=== PATIENT | female | born 1950 | race Caucasian/White ===

== ENCOUNTER 2017-03-29 08:58 | Emergency (ER) | payer BC ==
[2017-03-29] MEDS ORDERED: NS 0.9% 1000 ML* 1,000 ML IV ONE (11:02)
[2017-03-29] MEDS ORDERED: Ondansetron INJ* 2 MG/ML VIAL IV ONE (11:12)
[2017-03-29 11:28] LABS: ABS Basophils 0.1 10^3/ul (0-0.2); ABS Eosinophils 0 10^3/ul (0-0.6); ABS Lymphocytes 1.4 10^3/ul (1.0-4.8); ABS Monocytes 0.5 10^3/ul (0-0.8); ABS Neutrophils 8.3 10^3/ul (1.5-7.7); ABS Nucleated RBC 0 10^3/ul; Eosinophil % 0.4 % (0-6); Hematocrit 41 % (35-47); Hemoglobin 14.1 g/dl (12.0-16.0); Lymphocyte % 13.1 % (25-47); Mean Corpuscular HGB Conc 34 g/dl (31-36); Mean Corpuscular Hemoglobin 33 pg (27-31); Mean Corpuscular Volume 96 fL (80-97); Mean Platelet Volume 9 um3 (7.4-10.4); Nucleated Red Blood Cells % 0; Platelet Count 233 10^3/ul (150-450); Red Blood Count 4.27 10^6/ul (4.0-5.4); Red Cell Distribution Width 14 % (10.5-15); White Blood Count 10.3 10^3/ul (3.5-10.8)
[2017-03-29 11:33] VITALS: BP 138/87
[2017-03-29 11:37] LABS: INR 1.01 (0.77-1.02)
[2017-03-29 11:45] LABS: EGFR Non-African American 51.1 (>60)
--- NOTE | 2017-03-29 12:45 | ED ---
Aminata Garcia Julia, scribed for Ronaldo Anthony on 03/29/17 at 1057 . Influenza-Like Illness - HPI Summary HPI Summary: This patient is a 66 year old F presenting to [facility] with a chief complaint of influenza like symptoms for the past three days. Patient report body aches, fever, N/V/D, and epigastric abdominal pain. Patient denies SOB. Patient is concerned for dehydration. - History of Current Complaint Chief Complaint: EDFluSymptoms Time Seen by Provider: 03/29/17 10:39 Hx Obtained From: Patient Onset/Duration: Lasting Days Associated Signs & Symptoms: Fever, Myalgia, Vomiting, Diarrhea - Allergy/Home Medications Allergies/Adverse Reactions: Allergies Allergy/AdvReac Type Severity Reaction Status Date / Time amoxicillin [From Augmentin] Allergy Diarrhea Verified 03/29/17 09:09 clavulanic acid Allergy Diarrhea Verified 03/29/17 09:09 [From Augmentin] doxazosin [From Cardura] Allergy Difficulty Verified 03/29/17 09:10 Breathing losartan [From Cozaar] Allergy Dizziness Verified 03/29/17 09:11 metoprolol [From Lopressor] Allergy Fatigue Verified 03/29/17 09:11 pantoprazole [From Protonix] Allergy Swelling Verified 03/29/17 09:12 Of Face,Lips,& Throat verapamil [From Calan] Allergy Difficulty Verified 03/29/17 09:12 Breathing PMH/Surg Hx/FS Hx/Imm Hx Endocrine/Hematology History: Reports: Hx Thyroid Disease - BEING MONITORED AT THIS POINT-?ALIREZA'S Cardiovascular History: Reports: Hx Hypertension - ON MEDICATION FOR pt. states controlled Denies: Hx Pacemaker/ICD, Other Cardiovascular Problems/Disorders Respiratory History: Reports: Hx Asthma - RELATED TO SEASONAL ALLERGIES Denies: Other Respiratory Problems/Disorders GI History: Reports: Hx Gastroesophageal Reflux Disease - ON MEDS History: Reports: Hx Kidney Stones, Other Problems/Disorders - MANY YEARS AGO- BLEEDING-PERMANENT SCREW PLACED IN KIDNEY-15+YRS AGO Musculoskeletal History: Reports: Hx Arthritis - HIPS, KNEES, HANDS Denies: Hx Osteoporosis Sensory History: Reports: Hx Contacts or Glasses - READING Denies: Hx Hearing Aid Opthamlomology History: Reports: Hx Contacts or Glasses - READING Neurological History: Denies: Other Neuro Impairments/Disorders Psychiatric History: Reports: Hx Anxiety - 12+ YEARS AGO Denies: Hx Panic Disorder - Cancer History Cancer Type, Location and Year: Breast CA Hx Chemotherapy: No Hx Radiation Therapy: Yes - Surgical History Surgery Procedure, Year, and Place: 09/2002 CYSTO, LT STENT PLACED. 10/2006 RIGHT HIP REPLACEMENT. 10/2007 HYSTEROSCOPY WITH POLYPECTOMY AND D&C X 2 2009. 01/2008 RT LITTLE FINGER BONE SPUR REMOVED. 12/2009 RIGHT UNLAR NERVE DECOMPRESSION. BUNIONECTOMY 03/2011. 09/2014 LEFT NEEDLE LOC WITH LUMPECTOMY. left elbow orif Hx Anesthesia Reactions: No Infectious Disease History: Unable to Obtain/Confirm Infectious Disease History: Denies: Traveled Outside the [place] in Last 30 Days - Social History Alcohol Use: Weekly Alcohol Amount: 1-2 DRINKS 3-4 TIMES PER WEEK Substance Use Type: Reports: None Smoking Status (MU): Never Smoked Tobacco Have You Smoked in the Last Year: No Review of Systems Positive: Fever Negative: Shortness Of Breath Positive: Abdominal Pain, Vomiting, Diarrhea, Nausea Positive: Myalgia All Other Systems Reviewed And Are Negative: Yes Physical Exam - Summary Physical Exam Summary: Appearance: Well appearing, no pain distress Skin: warm, dry, reflects adequate perfusion Head/face: normal Eyes: EOMI, JAROD ENT: dry mucous membranes Neck: supple, non-tender Respiratory: CTA, breath sounds present Cardiovascular: RRR, pulses symmetrical Abdomen: mild epigastric tenderness, soft Bowel: present Musculoskeletal: normal, strength/ROM intact Neuro: normal, sensory motor intact, A&Ox3 Triage Information Reviewed: Yes Vital Signs On Initial Exam: Initial Vitals Pulse Pulse Ox 109 97 03/29/17 09:04 03/29/17 09:04 Vital Signs Reviewed: Yes Diagnostics - Vital Signs Vital Signs Temp Pulse Resp BP Pulse Ox 03/29/17 09:30 138/89 03/29/17 09:19 120 96 03/29/17 09:13 112 136/101 96 03/29/17 09:05 98.4 F 106 18 136/100 100 03/29/17 09:04 109 97 - Laboratory Lab Results: Lab Results 03/29/17 Range/Units 09:22 Influenza A (Rapid) Negative (Negative) Influenza B (Rapid) Negative (Negative) Result Diagrams: 03/29/17 11:15 Lab Statement: Any lab studies that have been ordered have been reviewed, and results considered in the medical decision making process. Flu Symptom Course/Dx - Course Course Of Treatment: Patient presents with influenza like symptoms for the past three days. Patient report body aches, fever, N/V/D, and epigastric abdominal pain. Bloodwork was obtained. Patient is given Zofran and IV hydration. Patient left AMA before A/P CT and Gallbladder US could be obtained. - Diagnoses Provider Diagnoses: Abdominal pain, Dizziness, Weakness Discharge - Discharge Plan Condition: Stable Disposition: AGAINST MEDICAL ADVICE Referrals: Wendi Ramirez MD [Primary Care Provider] - As Soon As Possible The documentation as recorded by the Aminata gordon Julia accurately reflects the service I personally performed and the decisions made by Gabrielle hunter Emmanuel.
== END 2017-03-29 11:33 | disposition left against medical advice (07) ==
LOC: ED 08:58
DX: R10.9 Unspecified abdominal pain (principal); R42 Dizziness and giddiness; R53.1 Weakness; Z88.0 Allergy status to penicillin; Z88.8 Allergy status to other drugs, medicaments and biological substances; I10 Essential (primary) hypertension; K21.9 Gastro-esophageal reflux disease without esophagitis; Z79.899 Other long term (current) drug therapy
CPT/HCPCS: 36415; 80053; 83605; 83690; 84484; 85025; 85610; 85730; 87502; 99282

== ENCOUNTER 2018-02-16 12:03 | Inpatient (IN) | payer BC, MEDICARE ==
--- NOTE | 2018-02-16 12:22 | ED ---
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 The patient was found on the side of the road by EMS, not making much sense. Patient reports left sided arm numbness and confusion. The patient states that she left her house to come to the hospital because of bleeding in her left arm, but she is not bleeding there in the ED. She left only in a light jacket, looked very cold, and was locked out of her house. She keeps saying that her son has recently visited and threw a raging alliance party with some of his friends. She believes that her son is 35 years old, but she is uncertain. The patient states that the month is May. Her neighbors state that she has not acted like this before. PMHX HTN, right side joint replacement, thyroid problems. 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 Vitals in the room: HR 121 bpm, BP 166/128. NIH: 1 for not knowing what month it is. - History Of Current Complaint Chief Complaint: EDAltMentalStatus Stated Complaint: GENERAL Time Seen by Provider: 02/16/18 12:05 Hx Obtained From: Patient Onset/Duration: Unknown Timing: Constant Character: Confusion - Risk Factors Cardiac Risk Factors: Hypertension - Allergies/Home Medications Allergies/Adverse Reactions: Allergies Allergy/AdvReac Type Severity Reaction Status Date / Time doxazosin [From Cardura] Allergy Difficulty Verified 03/29/17 09:10 Breathing losartan [From Cozaar] Allergy Dizziness Verified 03/29/17 09:11 verapamil [From Calan] Allergy Difficulty Verified 03/29/17 09:12 Breathing Home Medications: Home Medications Albuterol inh POWDER (NF) [Proair Respiclick] 2 puff INH Q4HR PRN 02/16/18 [ History Confirmed 02/16/18] Bacillus Coagulans [Probiotic] 1 cap PO DAILY 02/16/18 [History Confirmed ] LoraTADine TAB(NF) [Claritin 10 MG TAB(NF)] 10 mg PO DAILY PRN 02/16/18 [ History Confirmed 02/16/18] Melatonin (NF) 1.5 mg PO BEDTIME PRN 02/16/18 [History Confirmed 02/16/18] Mometasone NASAL (NF) [Nasonex (NF)] 1 - 2 spray BOTH NARES DAILY 02/16/18 [ History Confirmed 02/16/18] Multivitamins/Minerals TAB* [Theragran/minerals TAB*] 1 tab PO DAILY 02/16/18 [ History Confirmed 02/16/18] Phenylephrine/Dm/Acetaminop/GG [Sudafed PE Pressure+Pain+Cold] 1 tab PO DAILY PRN 02/16/18 [History Confirmed 02/16/18] diPHENhydraMINE PO* [Benadryl PO 25 MG TAB*] 25 mg PO BEDTIME PRN 02/16/18 [ History Confirmed 02/16/18] PMH/Surg Hx/FS Hx/Imm Hx Endocrine/Hematology History: Reports: Hx Thyroid Disease - BEING MONITORED AT THIS POINT-?ALIREZA'S Cardiovascular History: Reports: Hx Hypertension - ON MEDICATION FOR pt. states controlled Denies: Hx Pacemaker/ICD, Other Cardiovascular Problems/Disorders Respiratory History: Reports: Hx Asthma - RELATED TO SEASONAL ALLERGIES Denies: Other Respiratory Problems/Disorders GI History: Reports: Hx Gastroesophageal Reflux Disease - ON MEDS History: Reports: Hx Kidney Stones, Other Problems/Disorders - MANY YEARS AGO- BLEEDING-PERMANENT SCREW PLACED IN KIDNEY-15+YRS AGO Musculoskeletal History: Reports: Hx Arthritis - HIPS, KNEES, HANDS Denies: Hx Osteoporosis Sensory History: Reports: Hx Contacts or Glasses - READING Denies: Hx Hearing Aid Opthamlomology History: Reports: Hx Contacts or Glasses - READING Neurological History: Denies: Other Neuro Impairments/Disorders Psychiatric History: Reports: Hx Anxiety - 12+ YEARS AGO Denies: Hx Panic Disorder - Cancer History Cancer Type, Location and Year: Breast CA Hx Chemotherapy: No Hx Radiation Therapy: Yes - Surgical History Surgery Procedure, Year, and Place: 09/2002 CYSTO, LT STENT PLACED. 10/2006 RIGHT HIP REPLACEMENT. 10/2007 HYSTEROSCOPY WITH POLYPECTOMY AND D&C X 2 2009. 01/2008 RT LITTLE FINGER BONE SPUR REMOVED. 12/2009 RIGHT UNLAR NERVE DECOMPRESSION. BUNIONECTOMY 03/2011. 09/2014 LEFT NEEDLE LOC WITH LUMPECTOMY. 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 Skin: The skin is warm and dry and skin color reflects adequate perfusion. HEENT: The head is normocephalic and atraumatic. The pupils are equal and reactive. The conjunctivae are clear and without drainage. Nares are patent and without drainage. Mouth reveals moist mucous membranes and the throat is without erythema and exudate. The external ears are intact. The ear canals are patent and without drainage. The tympanic membranes are intact. Neck: The neck is supple with full range of motion and non-tender. There are no carotid bruits. There is no neck vein distension. Respiratory: Chest is non-tender. Lungs are clear to auscultation and breath sounds are symmetrical and equal. Cardiovascular: The patient is irregularly irregular and hypertensive. There is no murmur or rub auscultated. There is no peripheral edema and pulses are symmetrical and equal. Abdomen: The abdomen is soft and non-tender. There are normal bowel sounds heard in all four quadrants and there is no organomegaly palpated. Musculoskeletal: There is no back tenderness noted. Extremities are non-tender with full range of motion. There is good capillary refill. There is no peripheral edema or calf tenderness elicited. Neurological: Patient is alert and oriented to person, place and time. The patient has symmetrical motor strength in all four extremities. Cranial nerves are grossly intact. Deep tendon reflexes are symmetrical and equal in all four extremities. Psychiatric: The patient has an appropriate affect and does not exhibit any anxiety or depression. NIH: 1 for not knowing what month it is. GCS: 15 Triage Information Reviewed: Yes Vital Signs On Initial Exam: Initial Vitals Temp Pulse Resp BP Pulse Ox 97.8 F 109 16 166/128 96 02/16/18 12:07 02/16/18 12:07 02/16/18 12:07 02/16/18 12:07 02/16/18 12:07 Vital Signs Reviewed: Yes Diagnostics - Vital Signs Vital Signs Temp Pulse Resp BP Pulse Ox 02/16/18 12:19 105 15 175/115 95 02/16/18 12:18 100 13 95 02/16/18 12:07 97.8 F 109 16 166/128 96 - Laboratory Result Diagrams: 02/16/18 12:55 02/16/18 12:55 Lab Statement: Any lab studies that have been ordered have been reviewed, and results considered in the medical decision making process. - Radiology CXR Radiology Interpretation Completed By: Radiologist Summary of Radiographic Findings: Stigmata of probable chronic obstructive pulmonary disease. No evidence for pneumonia or presence of a suspicious focal pulmonary lesion. Moderate elevation of the RIGHT hemidiaphragm is new compared with the 2007 exam. ED physician has reviewed this report - CT Brain CT Interpretation Completed By: Radiologist Summary of CT Findings: No acute intracranial process evident. Moderate involutional change as on the previous MRI. ED physcian has reviewed this report - EKG 12:33 Cardiac Rate: Tachycardia - 102 bpm EKG Rhythm: Sinus Tachycardia ST Segment: Normal National Institutes Of Health - NIH Scale Level of Consciousness: Alert/Keenly Responsive Ask Patient the Month and His/Her Age: [age] Correct/Not Aphasic - didn't know month Ask Pt to Open/Close Eyes and Smoking Tobacco Packing Machine Hand/Release Non-Paretic Hand: Both Correctly Best Gaze (Only Horizontal Eye Movement): Normal Visual Field Testing: No Visual Loss Facial Paresis-Pt to Smile & Close Eyes or Grimace Symmetry: Normal/Symmetrical Motor Function - Right Arm: No Drift-Holds 10 Seconds Motor Function - Left Arm: No Drift-Holds 10 Seconds Motor Function - Right Leg: No Drift-Holds 10 Seconds Motor Function - Left Leg: No Drift-Holds 10 Seconds Limb Ataxia-Must be out of Proportion to Weakness Present: Absent Sensory (Use Pinprick to Test Arms/Legs/Trunk/Face): Normal Best Language (Describe Picture, Name Items): No Aphasia Dysarthria (Read Several Words): Normal Extinction and Inattention: No Abnormality Total Score: 1 Altered Mental Statu Course/Dx - Course Course Of Treatment: Ms. Nash presented in the a confusional state. She is not at all oriented to time but is to person and place. The story is unclear as is obtained partly from EMS and partly from her although unreliably. She was nontoxic in appearance and her vital signs were positive only for tachycardia. Initially she seemed to have atrial fibrillation when placed on the monitor at a rate of about 120. However after some time it appeared more likely to be a sinus tachycardia with PSVC's. Additionally she occasionally looks as though she goes into a rapid SVT. Her NIH stroke scale was only positive for not being able to name the month. There was no focal neurological finding. Because of the minor NIH finding and the unknown onset, a code olsen was not called however, she was worked up accordingly. I spoke with about the need for a CTA and he thought not and came to the department to evaluate her. He obtained an EEG in the department and recommended admission to the hospitalist service. I spoke with the hospitalist, Dr. Grey and she is being evaluated. - Diagnoses Provider Diagnoses: Confusional state - Provider Notifications Discussed Care Of Patient With: Himanshu Chu Time Discussed With Above Provider: 15:05 Instructed by Provider To: Admit As Inpatient - Critical Care Time Critical Care Time: 30-74 min Discharge - Sign-Out/Discharge Documenting (check all that apply): Patient Departure - admission - Discharge Plan Condition: Fair Disposition: ADMITTED TO [facility] Referrals: Wendi Ramirez MD [Primary Care Provider] - - Billing Disposition and Condition Condition: FAIR Disposition: Admitted to [facility] - Attestation Statements Document Initiated by Deborah: Yes Documenting Scribe: Washington Smith Provider For Whom Deborah is Documenting (Include Credential): Adolph Dickens MD Scribe Attestation: IWashington, scribed for Adolph Dickens MD on 02/16/18 at 1725. Scribe Documentation Reviewed: Yes Provider Attestation: The documentation as recorded by the Washington gordon accurately reflects the service I personally performed and the decisions made by me, Adolph Dickens MD Status of Scribe Document: Viewed Consult Consult: Discussed patient care at 15:[address] Grey, hospitalist, and they recommended admission
[2018-02-16 13:06] LABS: ABS Basophils 0.1 10^3/ul (0-0.2); ABS Eosinophils 0.1 10^3/ul (0-0.6); ABS Lymphocytes 1.5 10^3/ul (1.0-4.8); ABS Monocytes 0.9 10^3/ul (0-0.8); ABS Neutrophils 8.9 10^3/ul (1.5-7.7); ABS Nucleated RBC 0 10^3/ul; Eosinophil % 0.5 %; Hematocrit 43 % (35-47); Hemoglobin 14.4 g/dl (12.0-16.0); Lymphocyte % 12.9 %; Mean Corpuscular HGB Conc 34 g/dl (31-36); Mean Corpuscular Hemoglobin 32 pg (27-31); Mean Corpuscular Volume 93 fL (80-97); Mean Platelet Volume 9.5 fL (7.4-10.4); Nucleated Red Blood Cells % 0; Platelet Count 195 10^3/ul (150-450); Red Blood Count 4.57 10^6/ul (4.00-5.40); Red Cell Distribution Width 13 % (10.5-15); White Blood Count 11.4 10^3/ul (3.5-10.8)
[2018-02-16 13:14] LABS: INR 1.07 (0.77-1.02)
[2018-02-16 13:28] LABS: ALT 16 U/L (7-52); AST 30 U/L (13-39); Albumin 4.5 g/dL (3.2-5.2); Albumin/Globulin Ratio 1.7 (1-3); Alkaline Phosphatase 97 U/L (34-104); Anion Gap 14 mmol/L (2-11); BUN/Creatinine Ratio 21.2 (8-20); Blood Urea Nitrogen 24 mg/dL (6-24); CO2 Carbon Dioxide 26 mmol/L (22-32); Calcium 10.4 mg/dL (8.6-10.3); Chloride 95 mmol/L (101-111); EGFR Non-African American 48.3 (>60); Globulin 2.6 g/dL (2-4); Glucose 96 mg/dL (70-100); Magnesium 1.1 mg/dL (1.9-2.7); Potassium 3.7 mmol/L (3.5-5.0); Sodium 135 mmol/L (135-145); Total Protein 7.1 g/dL (6.4-8.9)
[2018-02-16 13:44] LABS: Acetaminophen < 15 mcg/mL; Alcohol < 10 mg/dL (<10); Salicylate < 2.50 mg/dL (<30)
[2018-02-16 13:58] LABS: TSH (Thyroid Stimulating Horm) 2.24 mcIU/mL (0.34-5.60)
[2018-02-16] MEDS ORDERED: Magnesium Sulfate 2 GM IV* 2 GM/50 ML BAG IVPB ONE ×2 (15:50→20:00)
[2018-02-16] MEDS ORDERED: Acetaminophen TAB* 325 MG PO PRN (16:46)
[2018-02-16] MEDS ORDERED: LORazepam TAB(*) 1 MG PO SCH (17:00)
[2018-02-16] MEDS ORDERED: NS 0.9% 1000 ML* 1,000 ML IV SCH (17:00)
[2018-02-16] MEDS ORDERED: LORazepam INJ* 2 MG/ML 1 ML VIAL ONE (17:00)
[2018-02-16] MEDS ORDERED: LORazepam INJ* 2 MG/ML 1 ML VIAL IV PUSH ONE (17:01)
[2018-02-16] MEDS ORDERED: hydrALAZINE IV* 20 MG/ML VIAL IV SLOW PU PRN (17:01)
[2018-02-16] MEDS ORDERED: Albuterol HFA INHALER* 8 gm MDI INH PRN (17:03)
[2018-02-16 17:18] LABS: C Reactive Protein 11.29 mg/L (<8.01)
[2018-02-16 17:22] LABS: Urine Appearance Cloudy; Urine Bacteria 1+ (Absent); Urine Bilirubin Negative (Negative); Urine Blood 1+ (Negative); Urine Color Yellow; Urine Glucose Negative (Negative); Urine Ketones 1+ (Negative); Urine Nitrite Negative (Negative); Urine Protein 2+(100 mg/dL) (Negative); Urine Red Blood Cell 2+(6-10/hpf) (Absent); Urine Specific Gravity 1.015 (1.010-1.030); Urine Urobilinogen Negative (Negative); Urine White Blood Cell 3+(>20/hpf) (Absent)
[2018-02-16 17:30] LABS: Barbiturates Urine Screen None Detected (None Detect); Benzodiazepine Urine Screen None Detected (None Detect); Urine Cannabinoids Screen None Detected (None Detect)
[2018-02-16] MEDS ORDERED: Gadoteridol* (CONTRAST) 279.3 MG/ML 10 ML IV ONE (17:38)
[2018-02-16] MEDS: Thiamine IV* 500 MG in NS 0.9% 250 ML* 250 ML IV SCH (19:09)
--- NOTE | 2018-02-16 19:42 | CONS ---
NEUROLOGY CONSULTATION NOTE: DATE OF CONSULT: 02/16/18 CONSULTING PROVIDER: Dr. Adolph Dickens. REASON FOR CONSULT: Confusion. 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 The patient is confused and disoriented. There is no last known well time. We do not have any further history regarding when her confusion started. She is unable to provide any history as she is unaware of her surrounding environment and general circumstances. There was some reported history by EMS that the patient complained of left side arm numbness and confusion. The patient stated that she left her arm to come to the hospital because she was bleeding and points to her left extremity, but there are no areas of any hematoma or blood. The patient left the house with only a light jacket and her boots without any socks. She kept perseverating and stating that her son recently visited and threw a raging alliance party with some of his friends in her home. The patient thinks it is May and the President is Eugenio Mccormick. PAST MEDICAL HISTORY: Hypertension, GERD, allergies, asthma, history of Michael thyroiditis though she has not required any specific treatment. PAST SURGICAL HISTORY: Right total hip replacement in 2006, right fifth finger surgery, right foot surgery. MEDICATIONS: 1. Irbesartan 300 mg p.o. daily. 2. Vitamin D 1000 units p.o. daily. 3. Multivitamin. 4. Benadryl 25 mg at bed time. 5. Sudafed 1 tablet p.o. daily. 6. Loratadine 10 mg p.o. daily. 7. Probiotics 1 cap p.o. daily. 8. Melatonin 1.5 mg p.o. at bedtime. 9. Mometasone 1 to 2 spray both nares daily. 10. Albuterol 2 puffs inhale every 4 hours p.r.n. ALLERGIES: To VERAPAMIL, LOSARTAN, DOXAZOSIN. FAMILY HISTORY: No family history of stroke or seizures according to the patient. 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 She denied any alcohol use, but other providers have mentioned that she does consume alcohol 1 to 2 drinks a week. She denied tobacco use. REVIEW OF SYSTEMS: A 14-point review of systems was obtained and otherwise negative, although the patient's cognitive status makes the review of systems questionable and most likely inaccurate. PHYSICAL EXAM: Vitals: Temperature 97.8, pulse rate of 102, respiratory rate of 16, oxygen saturation of 100%, blood pressure 166/108. The patient is resting comfortably. She was found strolling around the hallways in the ER at one point today. Well nourished, well developed. Head: Normocephalic, atraumatic without obvious abnormality. Conjunctivae/corneas are clear. Neck is supple and symmetrical with no carotid bruits. Lungs are clear to auscultation bilaterally. Cardiovascular: Supraventricular tachycardia occasionally with heart rate going up to the 141-150. Extremities: Normal range of motion with no cyanosis. Skin: No skin lesions or laceration. Psych : Affect is inappropriate and she appears to have a depressed mood. She is slightly hard to establish a rapport. She requested a female actuarial consultant before we initiated this examination. The nurse, Kristi, joined the examiner to perform the neurological assessment. Mental status: The patient is awake. She is alert to self and place, but not time or year. She thinks it is 1920. She thought the President was a Eugenio Mccormick. She was unable to repeat any words after 1 minute. She was unable to spell the word "world" backward. She has normal hesitant speech. Cranial Nerves: Normal to confrontation bilaterally. Pupils are mid range and reactive to light. Normal consensual response. There is no nystagmus. Sensation is intact in the forehead, cheeks, and jaw region bilaterally, although she states there is slight decreased sensation on the right side of the face. No facial droop. She is able to hear throughout the history process. Normal strength against shoulder shrug and tongue is symmetrical and midline with no atrophy or fasciculation. Motor: There is no abnormal movements or pronator drift. Normal bulk and tone throughout. Neck extension is 5/5. Shoulder abduction, elbow flexion and extension, the wrist flexion and extension, hip flexion and abduction, knee flexion and extension, ankle dorsiflexion are 5/5. Reflexes: 2+ throughout the upper and lower extremity with 1+ bilateral at the ankle. Flexor plantar response bilaterally. Sensation is intact to light touch throughout except for slightly reduced light touch sensation on the right arm and right leg. Vibration is intact at 14 seconds on the right and 12 seconds on the left great toe. Proprioception is intact. Coordination: Normal [id number] bilaterally. Gait and station are narrow based, normal stance and no ataxia. LABS, IMAGING AND OTHER DIAGNOSTIC TESTING: CT head without contrast showed no evidence of acute intracranial abnormality. I personally reviewed the study. Labs: WBCs are 11, hemoglobin is 14, hematocrit of 43, platelet count of 195. INR is 1.07. Sodium 135, potassium 3.7, chloride of 95, anion gap of 14, creatinine 1.13. Lactic acid 1.7, AST/ALT 30/16. B12 457. TSH 2.24. Urinalysis was not obtained. ASSESSMENT: Yamilet Nash is a 67-year-old female who has history of reported Michael thyroiditis and hypertension who presents with acute confusion. There is no collateral history here to help obtain information regarding the patient's last known well time. I suspect that this is a fairly acute presentation and her confusion may have occurred this morning. Acute encephalopathy manifesting as delirium - I suspect the patient has toxic metabolic encephalopathy either from [id number] medication that she is currently consuming such as Sudafed, Benadryl versus metabolic encephalopathy such as possible autoimmune thyroid disease. I do not find any lateralizing neurological deficits to suspect the stroke other than nonspecific sensory abnormality on the right side. Reassuringly, her CT of the head does not show any evidence of an acute ischemic or hemorrhagic stroke. She does not have any findings to suspect encephalitis given the lack of fever or elevated white count. Depending on her alcohol consumption, she may have delirium related to alcohol withdrawal or due to abuse. This would be an atypical presentation of TGA. RECOMMENDATIONS: I recommend further evaluation of her thyroid function and obtaining free T4, free T3, anti-TPO, anti-thyroid peroxidase antibodies. Also please order an MRI of the brain with and without contrast to evaluate for any leptomeningeal enhancement or structure abnormality involving the frontal lobe. The EEG is pending, but a preliminary report showed slight areas of diffuse slowing with no evidence of epileptiform discharges or electrographic seizures. Hold all antihistamines and antitussive medications. Neuro checks every 4 hours. Start IV fluids with a rate of 75 cc of normal saline an hour. Treat her blood pressure to normotensive range. Start on IV thiamine supplementation for 24 hours of 500 mg IV every 8 hours x3 in case she is manifesting with vitamin B1 deficiency. I discussed the plan with Dr. Dickens. TIME SPENT: I spent a total of 75 minutes and greater than 50% was spent directly reviewing the medical chart, obtaining history, examining the patient, education, counseling, and discussing the treatment plan as mentioned above. [id number]/[facility] #: [id number] MTDD
[2018-02-16] MEDS: LORazepam TAB(*) 1 MG PO SCH ×2 (20:11→22:05)
[2018-02-16] MEDS: cefTRIAXone(*) 1 GM in NS 0.9% 50 ML* 50 ML IVPB SCH (20:55)
--- NOTE | 2018-02-16 21:21 | EEG ---
ELECTROENCEPHALOGRAPHY: DATE OF STUDY: 02/16/18 ORDERED BY: Himanshu Chu MD INDICATION: Ms. Yamilet Nash is a 67-year-old female who presents with acute episode of confusion. This EEG was obtained to evaluate for epileptiform abnormalities or electrographic seizures. MEDICATIONS: 1. ProAir. 2. Avapro. 3. Melatonin. 4. Theragran. 5. Probiotics. 6. Claritin. 7. Sudafed. 8. Benadryl. 9. Nasonex. CLINICAL STATE: Awake state. REPORT: The background showed appropriate organization with clearly defined anterior-posterior volta ge of frequency gradients. There was a well-defined posterior dominant rhythm of 9 Hz which was symm etrical and showed normal reactivity. There were rare intervals of diffuse polymorphic medium amplit ude slowing, mostly in the beginning of the recording with no evidence of epileptiform discharged. H yperventilation and photic stimulation were not performed. Single electrode EKG showed sinus tachycardia with a rate of 120-130. Throughout the recording, ther e were no electrographic seizures. CLINICAL IMPRESSION: This is an abnormal awake EEG due to the presence of mild diffuse slowing. The se findings are suggestive of a mild global encephalopathy which can be seen in toxic metabolic distu rbance or as a result of medication side effects. Clinical correlation is recommended. [id number]/[facility] #: [id number]
[2018-02-16] MEDS: Senna TAB PO SCH (21:30)
[2018-02-16] MEDS: Docusate CAP* 100 MG PO SCH (21:31)
[2018-02-16] MEDS: Heparin VIAL(*) 5000 UNITS/ML VIAL (FIVE THOUSAND) SUBCUT SCH (21:34)
[2018-02-17] MEDS: Thiamine IV* 500 MG in NS 0.9% 250 ML* 250 ML IV SCH ×2 (02:07→09:27)
[2018-02-17] MEDS: Heparin VIAL(*) 5000 UNITS/ML VIAL (FIVE THOUSAND) SUBCUT SCH ×3 (05:50→21:54)
[2018-02-17 06:35] LABS: Hematocrit 40 % (35-47); Hemoglobin 13.3 g/dl (12.0-16.0); Mean Corpuscular HGB Conc 34 g/dl (31-36); Mean Corpuscular Hemoglobin 32 pg (27-31); Mean Corpuscular Volume 95 fL (80-97); Mean Platelet Volume 10.1 fL (7.4-10.4); Platelet Count 175 10^3/ul (150-450); Red Blood Count 4.18 10^6/ul (4.00-5.40); Red Cell Distribution Width 13 % (10.5-15); White Blood Count 7.9 10^3/ul (3.5-10.8)
[2018-02-17 06:54] LABS: ABS Basophils 0.1 10^3/ul (0-0.2); ABS Eosinophils 0.6 10^3/ul (0-0.6); ABS Lymphocytes 1.7 10^3/ul (1.0-4.8); ABS Monocytes 0.6 10^3/ul (0-0.8); ABS Neutrophils 4.9 10^3/ul (1.5-7.7); ABS Nucleated RBC 0 10^3/ul; Albumin 3.7 g/dL (3.2-5.2); Albumin/Globulin Ratio 1.3 (1-3); BUN/Creatinine Ratio 20.2 (8-20); Calcium 9.4 mg/dL (8.6-10.3); EGFR Non-African American 43.4 (>60); Eosinophil % 8.1 %; Globulin 2.8 g/dL (2-4); HDL Cholesterol 69.6 mg/dL; Indirect Bilirubin 0.8 mg/dL (0.3-1.0); Magnesium 2.4 mg/dL (1.9-2.7); Nucleated Red Blood Cells % 0; Potassium 3.4 mmol/L (3.5-5.0); Total Protein 6.5 g/dL (6.4-8.9)
[2018-02-17 07:24] LABS: Free T4 1.15 ng/dL (0.61-1.12)
[2018-02-17 07:27] LABS: Thyroid Peroxidase Antibodies 0.34 IU/mL (<9)
[2018-02-17] MEDS ORDERED: Potassium Chlor TAB* 20 MEQ TAB.ER PO ONE (09:00)
[2018-02-17] MEDS: Docusate CAP* 100 MG PO SCH ×2 (09:20→21:52)
[2018-02-17] MEDS: Magnesium Oxide TAB* 400 MG PO SCH (09:20)
[2018-02-17] MEDS: Multivitamins/Minerals TAB PO SCH (09:21)
[2018-02-17] MEDS: Senna TAB PO SCH ×2 (09:21→21:52)
[2018-02-17] MEDS: Folic Acid TAB* 1 MG PO SCH (09:22)
[2018-02-17] MEDS: IRBESARTAN 150 MG PO SCH (09:25)
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
[2018-02-17] MEDS: cefTRIAXone(*) 1 GM in NS 0.9% 50 ML* 50 ML IVPB SCH (21:58)
[2018-02-18] MEDS: Heparin VIAL(*) 5000 UNITS/ML VIAL (FIVE THOUSAND) SUBCUT SCH ×3 (05:57→21:06)
[2018-02-18 07:51] LABS: BUN/Creatinine Ratio 19.6 (8-20); Calcium 9.7 mg/dL (8.6-10.3); EGFR Non-African American 48.8 (>60); Potassium 3.1 mmol/L (3.5-5.0)
[2018-02-18] MEDS: Multivitamins/Minerals TAB PO SCH (08:14)
[2018-02-18] MEDS: Docusate CAP* 100 MG PO SCH ×2 (08:14→21:06)
[2018-02-18] MEDS: Senna TAB PO SCH ×2 (08:14→21:05)
[2018-02-18] MEDS: IRBESARTAN 150 MG PO SCH (08:14)
[2018-02-18] MEDS: Folic Acid TAB* 1 MG PO SCH (08:14)
[2018-02-18] MEDS: Magnesium Oxide TAB* 400 MG PO SCH (08:14)
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
[2018-02-18] MEDS: Naltrexone TAB* 50 MG TAB PO SCH (11:13)
[2018-02-18] MEDS: Potassium Chlor TAB* 20 MEQ TAB.ER PO SCH ×2 (12:07→21:05)
[2018-02-18] MEDS: cefTRIAXone(*) 1 GM in NS 0.9% 50 ML* 50 ML IVPB SCH (21:05)
[2018-02-19] MEDS: Heparin VIAL(*) 5000 UNITS/ML VIAL (FIVE THOUSAND) SUBCUT SCH ×3 (05:59→21:36)
[2018-02-19 07:01] LABS: BUN/Creatinine Ratio 17.2 (8-20); Calcium 10.2 mg/dL (8.6-10.3); EGFR Non-African American 56.3 (>60)
[2018-02-19] MEDS: Senna TAB PO SCH ×2 (08:44→21:35)
[2018-02-19] MEDS: IRBESARTAN 150 MG PO SCH (08:44)
[2018-02-19] MEDS: Potassium Chlor TAB* 20 MEQ TAB.ER PO SCH ×2 (08:44→21:35)
[2018-02-19] MEDS: Magnesium Oxide TAB* 400 MG PO SCH (08:44)
[2018-02-19] MEDS: Multivitamins/Minerals TAB PO SCH (08:44)
[2018-02-19] MEDS: Docusate CAP* 100 MG PO SCH ×2 (08:44→21:35)
[2018-02-19] MEDS: Folic Acid TAB* 1 MG PO SCH (08:44)
[2018-02-19] MEDS: Naltrexone TAB* 50 MG TAB PO SCH (08:44)
--- NOTE | 2018-02-19 08:45 | PN ---
<Flaquito WellsEdna - Last Filed: 02/19/18 08:50> Subjective Date of Service: 02/19/18 Length of Stay: 3 Days Neurology is following [] for the evaluation and management of [] Interval History: CC-AMS Pt examined today at the bedside. She states that she is feeling better. She denies chest pain and denies sob. Denies headache. Denies any new focal weaknesses. Denies difficulty with speech. She states that she knows where she is and the month and time. She does not recall the events surrounding admission. She states that she thought she was in a dream. ROS-denies fever, denies chest pain, denies chills, denies abdominal pain, denies nausea, denies vomiting, denies lightheadedness, denies loc, denies sob, review of 11 systems completed all others negative, Review of Systems: Denied CP, SOB, or palpitations. Objective Active Medications: Acetaminophen (Tylenol Tab*) 650 mg PO Q4H PRN PRN Reason: FEVER/PAIN Albuterol (Ventolin Hfa Inhaler*) 2 puff INH Q4H PRN PRN Reason: SHORTNESS OF BREATH Docusate Sodium (Colace Cap*) 100 mg PO BID [facility] Last Admin: 02/18/18 21:06 Dose: 100 mg Folic Acid (Folvite Tab*) 1 mg PO DAILY [facility] Last Admin: 02/18/18 08:14 Dose: 1 mg Heparin Sodium (Porcine) (Heparin Vial(*)) 5,000 units SUBCUT Q8HR [facility] Last Admin: 02/19/18 05:59 Dose: 5,000 units Hydralazine HCl (Apresoline Iv*) 5 mg IV SLOW PU Q6H PRN PRN Reason: SYSTOLIC BP GREATER THAN: Ceftriaxone Sodium 1 gm/ (Sodium Chloride) 50 mls @ 200 mls/hr IVPB Q24H [facility] Last Admin: 02/18/18 21:05 Dose: 200 mls/hr Irbesartan (Avapro (Nf)) 300 mg PO DAILY [facility] Last Admin: 02/18/18 08:14 Dose: 300 mg Lorazepam (Ativan Tab(*)) 0 mg PO .PER [facility] PROTOCOL [facility]; Protocol Last Admin: 02/16/18 22:05 Dose: 1 mg Magnesium Oxide (Magox 400 Tab*) 400 mg PO DAILY [facility] Last Admin: 02/18/18 08:14 Dose: 400 mg Multivitamins/Minerals (Theragran/Minerals Tab*) 1 tab PO DAILY [facility] Last Admin: 02/18/18 08:14 Dose: 1 tab Naltrexone HCl (Naltrexone Tab*) 50 mg PO DAILY [facility]; Protocol Last Admin: 02/18/18 11:13 Dose: 50 mg Potassium Chloride (Klor Con Er Tab*) 20 meq PO BID [facility] Last Admin: 02/18/18 21:05 Dose: 20 meq Senna (Senokot Tab*) 1 tab PO BID [facility] Last Admin: 02/18/18 21:05 Dose: 1 tab Vital Signs 02/18/18 02/18/18 02/18/18 10:10 12:08 15:20 Temperature 97.9 F 97.6 F 98.1 F Pulse Rate 91 77 84 Respiratory 16 16 18 Rate Blood Pressure 169/89 155/83 158/84 (mmHg) O2 Sat by Pulse 98 94 98 Oximetry 02/18/18 02/18/18 02/18/18 16:00 19:12 19:15 Temperature 97.6 F Pulse Rate 73 78 Respiratory 20 16 Rate Blood Pressure 172/98 167/102 (mmHg) O2 Sat by Pulse 96 Oximetry 02/18/18 02/19/18 02/19/18 20:00 00:31 03:32 Temperature 97.8 F 98.1 F Pulse Rate 90 69 Respiratory 16 16 16 Rate Blood Pressure 152/100 161/98 (mmHg) O2 Sat by Pulse 97 97 Oximetry 02/19/18 02/19/18 07:30 07:33 Temperature 97.2 F Pulse Rate 76 Respiratory 16 16 Rate Blood Pressure 157/96 (mmHg) O2 Sat by Pulse 97 Oximetry Intake and Output Last 24 Hours 02/17/18 02/18/18 02/19/18 02/20/18 06:59 06:59 06:59 06:59 Intake Total 5874 746 4478 Balance 7246 111 9310 Weight 119 lb 6.4 oz Intake: IV Fluids 1124 327 30 ABX - CEFTRIAXONE 200 55 30 NS (0.9%) 416 233 Thiamine 508 39 IVPB 50 ABX - CEFTRIAXONE 50 Oral 0 520 2240 Other: Estimated Void Medium Small # Bowel Movements 0 1 # Voids 1 3 5 Oxygen Devices in Use Now: None Neurology Exam: General: Awake, Alert, Oriented x3 HEENT: Normocephalic/atraumatic, sclera anicteric, mucous membranes moist Neck: Supple Chest: Clear to auscultation bilaterally Cardiovascular: Regular rate and rhythm without murmurs, rubs, gallops Abdomen: Soft, nontender/nondistended Extremities: No clubbing, cyanosis, or edema Neurological Findings: Awake, Alert, Oriented x3 Speech: fluent without dysarthria repetition intact Cranial Nerve: PEERL, EOM intact, VFF, no nystagmus, face symmetric bilaterally , facial sensation intact, hearing intact to finger rub bilaterally, palate elevates symmetrically, tongue midline, SCM and Trapezius s/s. Motor: s/s throughout, proximal and distal extremities x4 tone/bulk normal Sensation: intact to LT/PP bilaterally upper and lower extremities Deep Tendon Reflex: 2+ symmetric in the upper/lower extremities, Babinski - down going Finger to nose, rapid alternating movements intact without tremor, no dysdiadochokinesia Gait: intact with good arm swing and stride Result Diagrams: 02/17/18 06:23 02/19/18 06:15 Microbiology and Other Data: Microbiology 02/16/18 16:55 Urine Culture - Final Urine Escherichia Coli 02/17/18 06:23 Aerobic Blood Culture - Preliminary Blood Venous No Growth Day 1 Anaerobic Blood Culture - Preliminary No Growth Day 1 02/16/18 20:01 Aerobic Blood Culture - Preliminary Blood Arterial No Growth Day 1 Anaerobic Blood Culture - Preliminary No Growth Day 1 Assessment/Plan 67 year old with a history of Michael's thyroiditis (untreated), HTN and reported history of alcohol use. Reported similar symptoms in the past related to EtOH. She presents with acute delirium, very confused, confabulating at times, ? hallucinations. Vital signs remain stable at this point with some blood pressure lability. Metabolic workup is essentially normal with some hypokalemia this am. Imaging shows no acute changes, EEG consistent with encephalopathy. Has a UTI, now on Abx. Asymptomatic. 1. AMS: Patient is improved again today. Delirium resolved She denies any recent alcohol use. Workup has been largely negative. I suspect that the UTI, in the setting of probably chronic, heavy alcohol use, along with benadryl and sudafed has caused some multifactorial delirium. It has been reported that she had similar symptoms in the past related to alcohol use but she denies any recent drinking. Unknown when her last drink was. She has no strong evidence for w/d at this time. Continue to watch for w/d. Continue Thiamine and Folic acid. Suspicion for [place] at this point is low but remains on the DDx. Suspicion for seizures/E LEARNING COORDINATOR infection remains very low. 2. No runs of VT overnight. Continue Tele monitoring 3. HTN: Labile on meds. Defer to Dr. Mckeon regarding any adjustments. 4. Thyroid disease. Appears stable at this time. I do not think it is contributing to presentation 5. UTI: on Abx. Thank you for this neurology consult. At this time her acute neurological issue has resolved we will sign off. Please call with any further questions or concerns. <Sean Schmidt - Last Filed: 02/19/18 12:24> Subjective Length of Stay: 3 Days Neurology is following [] for the evaluation and management of [] Review of Systems: Denied CP, SOB, or palpitations. Objective Active Medications: Acetaminophen (Tylenol Tab*) 650 mg PO Q4H PRN PRN Reason: FEVER/PAIN Albuterol (Ventolin Hfa Inhaler*) 2 puff INH Q4H PRN PRN Reason: SHORTNESS OF BREATH Docusate Sodium (Colace Cap*) 100 mg PO BID [facility] Last Admin: 02/19/18 08:44 Dose: 100 mg Folic Acid (Folvite Tab*) 1 mg PO DAILY [facility] Last Admin: 02/19/18 08:44 Dose: 1 mg Heparin Sodium (Porcine) (Heparin Vial(*)) 5,000 units SUBCUT Q8HR [facility] Last Admin: 02/19/18 05:59 Dose: 5,000 units Hydralazine HCl (Apresoline Iv*) 5 mg IV SLOW PU Q6H PRN PRN Reason: SYSTOLIC BP GREATER THAN: Ceftriaxone Sodium 1 gm/ (Sodium Chloride) 50 mls @ 200 mls/hr IVPB Q24H [facility] Last Admin: 02/18/18 21:05 Dose: 200 mls/hr Irbesartan (Avapro (Nf)) 300 mg PO DAILY [facility] Last Admin: 02/19/18 08:44 Dose: 300 mg Lorazepam (Ativan Tab(*)) 0 mg PO .PER [facility] PROTOCOL [facility]; Protocol Last Admin: 02/16/18 22:05 Dose: 1 mg Magnesium Oxide (Magox 400 Tab*) 400 mg PO DAILY [facility] Last Admin: 02/19/18 08:44 Dose: 400 mg Multivitamins/Minerals (Theragran/Minerals Tab*) 1 tab PO DAILY [facility] Last Admin: 02/19/18 08:44 Dose: 1 tab Naltrexone HCl (Naltrexone Tab*) 50 mg PO DAILY [facility]; Protocol Last Admin: 02/19/18 08:44 Dose: 50 mg Potassium Chloride (Klor Con Er Tab*) 20 meq PO BID [facility] Last Admin: 02/19/18 08:44 Dose: 20 meq Senna (Senokot Tab*) 1 tab PO BID [facility] Last Admin: 02/19/18 08:44 Dose: 1 tab Vital Signs 02/18/18 02/18/18 02/18/18 10:10 12:08 15:20 Temperature 97.9 F 97.6 F 98.1 F Pulse Rate 91 77 84 Respiratory 16 16 18 Rate Blood Pressure 169/89 155/83 158/84 (mmHg) O2 Sat by Pulse 98 94 98 Oximetry 02/18/18 02/18/18 02/18/18 16:00 19:12 19:15 Temperature 97.6 F Pulse Rate 73 78 Respiratory 20 16 Rate Blood Pressure 172/98 167/102 (mmHg) O2 Sat by Pulse 96 Oximetry 02/18/18 02/19/18 02/19/18 20:00 00:31 03:32 Temperature 97.8 F 98.1 F Pulse Rate 90 69 Respiratory 16 16 16 Rate Blood Pressure 152/100 161/98 (mmHg) O2 Sat by Pulse 97 97 Oximetry 02/19/18 02/19/18 07:30 07:33 Temperature 97.2 F Pulse Rate 76 Respiratory 16 16 Rate Blood Pressure 157/96 (mmHg) O2 Sat by Pulse 97 Oximetry Intake and Output Last 24 Hours 02/17/18 02/18/18 02/19/18 02/20/18 06:59 06:59 06:59 06:59 Intake Total 6740 111 9931 Balance 8135 052 2891 Weight 119 lb 6.4 oz Intake: IV Fluids 1124 327 30 ABX - CEFTRIAXONE 200 55 30 NS (0.9%) 416 233 Thiamine 508 39 IVPB 50 ABX - CEFTRIAXONE 50 Oral 0 520 2240 Other: Estimated Void Medium Small # Bowel Movements 0 1 # Voids 1 3 5 Neurology Exam: General: Awake, Alert, Oriented x3 HEENT: Normocephalic/atraumatic, sclera anicteric, mucous membranes moist Neck: Supple Chest: Clear to auscultation bilaterally Cardiovascular: Regular rate and rhythm without murmurs, rubs, gallops Abdomen: Soft, nontender/nondistended Extremities: No clubbing, cyanosis, or edema Neurological Findings: Awake, Alert, Oriented x3 Speech: fluent without dysrhythmia, repetition intact Cranial Nerve: PEERL, EOM intact, VFF, no nystagmus, face symmetric bilaterally , facial sensation intact, hearing intact to finger rub bilaterally, palate elevates symmetrically, tongue midline, SCM and Trapezius s/s. Motor: s/s throughout, proximal and distal extremities x4 tone/bulk normal Sensation: intact to LT/PP bilaterally upper and lower extremities Deep Tendon Reflex: 2+ symmetric in the upper/lower extremities, Babinski - down going Finger to nose, rapid alternating movements intact without tremor, no dysdiadochokinesia Gait: intact with good arm swing and stride Result Diagrams: 02/17/18 06:23 02/19/18 06:15 Microbiology and Other Data: Microbiology 02/17/18 06:23 Aerobic Blood Culture - Preliminary Blood Venous No Growth Day 2 Anaerobic Blood Culture - Preliminary No Growth Day 2 02/16/18 20:01 Aerobic Blood Culture - Preliminary Blood Arterial No Growth Day 2 Anaerobic Blood Culture - Preliminary No Growth Day 2 02/16/18 16:55 Urine Culture - Final Urine Escherichia Coli Assessment/Plan I examined the patient and discussed the findings and plan with Flaquito Wells. I agree with the assessment and plan as noted.
--- NOTE | 2018-02-19 12:14 | ECHO ---
Patient: NIKITA OLSON Rec#: [id number] : 1950 Date: 02/19/2018 Age: 67y Height: 173 cm / 68.1 in Weight: 54 kg / 119.0 lbs Sex: F BSA: 1.64 Room#: [facility] Admit Date#: 02/16/2018 Type: Inpatient Referring: Wendi Ramirez MD Reading: Remi Oliveros MD [employer] Statistical Programmer: Jillian RetanaRDCS,RDMS Transthoracic Echocardiogram Indication: ABN EKG BP: 157/96 HR: 75 Rhythm: NSR Findings History: HTN, breast cancer Technical Comments: The study quality is fair. Left Ventricle: The left ventricular chamber size is normal. Mild concentric left ventricular hypertrophy is observed. Basal interventricular septum shows moderate thickening. Global left ventricular wall motion and contractility are within normal limits. There is normal left ventricular systolic function. The estimated ejection fraction is 55-60%. There is an E to A reversal in the mitral valve flow pattern suggestive of diastolic dysfunction. Left Atrium: The left atrial chamber size is normal. Right Ventricle: The right ventricular chamber size and systolic function are within normal limits. The right ventricle wall thickness is mildly increased. Right Atrium: The right atrial cavity size is normal. Aortic Valve: The aortic valve is trileaflet. The aortic valve leaflets are mildly thickened. There is aortic annular calcification. There is a trace of aortic regurgitation. There is no evidence of aortic stenosis. Mitral Valve: Moderate mitral annular calcification present. The mitral valve leaflets are mildly thickened. There is mild mitral regurgitation. There is mild mitral stenosis. Tricuspid Valve: The tricuspid valve leaflets are normal. There is no evidence of tricuspid valve regurgitation. Unable to estimate the right ventricular systolic pressure. Pulmonic Valve: The pulmonic valve appears normal. There is no evidence of pulmonic regurgitation. Pericardium: There is no significant pericardial effusion. Aorta: The ascending aorta is not well visualized. There is no dilatation of the aortic arch. The aortic root is normal in size. Pulmonary Artery: The main pulmonary artery is not well visualized. Venous: The inferior vena cava appears normal in size. There is an approximate 50% respiratory change in the inferior vena cava dimension. Conclusions Mild concentric left ventricular hypertrophy is observed. Basal interventricular septum shows moderate thickening. Global left ventricular wall motion and contractility are within normal limits. The estimated ejection fraction is 55-60%. The right ventricular chamber size and systolic function are within normal limits. There is aortic annular calcification. There is a trace of aortic regurgitation. There is mild mitral regurgitation. There is no evidence of tricuspid valve regurgitation. Unable to estimate the right ventricular systolic pressure. There is no significant pericardial effusion. Compared to study of 10/2008, the LV function and valve function are the same. Systolic anterior motion of the mitral valve is not seen on this study Measurements Name Value Normal Range RVIDd (AP) 2D 1.8 cm (0.9 - 2.6) RVDdMajor (2D) 2 cm (2.2 - 4.4) RAd ISD 4CH 4 cm (3.4 - 4.9) RA (A4C)W 3.5 cm (2.9 - 4.6) IVSd (2D) 1.4 cm (0.6 - 1) LVPWd (2D) 1.1 cm (0.6 - 1) LVIDd (2D) 4 cm (3.6 - 5.4) LVIDs (2D) 2.3 cm - LV FS (2D) 41 % (25 - 45) Aortic Annulus 1.9 cm (1.4 - 2.6) Ao root diameter (2D) 3.1 cm (2.1 - 3.5) Aortic arch 3.1 cm (1.8 - 3.4) LA dimension (AP) 2D 3.8 cm (2.3 - 3.8) LAd ISD 4CH 4.4 cm (2.9 - 5.3) LA ISD 4CH W 3.9 cm (2.5 - 4.5) Name Value Normal Range LA ESV BP (A/L) index 26 ml/m2 - Name Value Normal Range MV E-wave Vmax 1.3 m/sec - MV deceleration time 201 msec - MV A-wave Vmax 1.5 m/sec - MV E:A ratio 0.9 ratio - LV septal e' Vmax 0.07 m/sec - LV lateral e' Vmax 0.08 m/sec - LV E:e' septal ratio 19 ratio - LV E:e' lateral ratio 16 ratio - Name Value Normal Range AV Vmax 1.3 m/sec - AV VTI 29 cm - AV peak gradient 7 mmHg - AV mean gradient 4 mmHg - LVOT diameter 2 cm - LVOT Vmax 1.3 m/sec - LVOT VTI 28 cm - LVOT peak gradient 7 mmHg - LVOT mean gradient 4 mmHg - [place] Vmax 0.4 m/sec - Name Value Normal Range MV Vmax 1.5 m/sec - MV VTI 39 cm - MV peak gradient 9 mmHg - MV mean gradient 4 mmHg - MV PHT 76 msec - MVA (PHT) 2.9 cm2 - MVA (continuity VTI) 2.2 cm2 - Name Value Normal Range RAP 8 mmHg - IVC diameter 1.8 cm - Name Value Normal Range PV Vmax 0.6 m/sec - PV peak gradient 1.4 mmHg -
[2018-02-19] MEDS: cefTRIAXone(*) 1 GM in NS 0.9% 50 ML* 50 ML IVPB SCH (21:35)
[2018-02-20] MEDS: Heparin VIAL(*) 5000 UNITS/ML VIAL (FIVE THOUSAND) SUBCUT SCH (05:24)
[2018-02-20 06:29] LABS: Hematocrit 38 % (35-47); Hemoglobin 12.5 g/dl (12.0-16.0); Mean Corpuscular HGB Conc 33 g/dl (31-36); Mean Corpuscular Hemoglobin 32 pg (27-31); Mean Corpuscular Volume 95 fL (80-97); Mean Platelet Volume 10.5 fL (7.4-10.4); Platelet Count 167 10^3/ul (150-450); Red Blood Count 3.98 10^6/ul (4.00-5.40); Red Cell Distribution Width 13 % (10.5-15); White Blood Count 6.6 10^3/ul (3.5-10.8)
[2018-02-20 06:46] LABS: Albumin 3.6 g/dL (3.2-5.2); Albumin/Globulin Ratio 1.2 (1-3); BUN/Creatinine Ratio 15.4 (8-20); Calcium 10.4 mg/dL (8.6-10.3); EGFR Non-African American 53.2 (>60); Globulin 3.1 g/dL (2-4); Phosphorus 3.8 mg/dL (2.5-5.0); Total Bilirubin 0.4 mg/dL (0.2-1.0); Total Protein 6.7 g/dL (6.4-8.9)
[2018-02-20 06:54] LABS: Potassium 5.2 mmol/L (3.5-5.0)
[2018-02-20 07:32] LABS: ABS Basophils 0 10^3/ul (0-0.2); ABS Eosinophils 0.4 10^3/ul (0-0.6); ABS Lymphocytes 1.6 10^3/ul (1.0-4.8); ABS Monocytes 0.5 10^3/ul (0-0.8); ABS Nucleated RBC 0 10^3/ul; Eosinophil % 6.1 %; Large Platelets Present; Lymphocyte % 24.7 %; Nucleated Red Blood Cells % 0
[2018-02-20] MEDS: Multivitamins/Minerals TAB PO SCH (08:16)
[2018-02-20] MEDS: IRBESARTAN 150 MG PO SCH (08:16)
[2018-02-20] MEDS: Folic Acid TAB* 1 MG PO SCH (08:16)
[2018-02-20] MEDS: Senna TAB PO SCH (08:16)
[2018-02-20] MEDS: Naltrexone TAB* 50 MG TAB PO SCH (08:16)
[2018-02-20] MEDS: Docusate CAP* 100 MG PO SCH (08:16)
[2018-02-20] MEDS: Magnesium Oxide TAB* 400 MG PO SCH (08:16)
[2018-02-20] MEDS: Potassium Chlor TAB* 20 MEQ TAB.ER PO SCH (08:17)
[2018-02-20 08:58] VITALS: BP 137/82
--- NOTE | 2018-02-20 15:32 | CONS ---
CONSULTATION REPORT: DATE OF CONSULT: 02/20/18 ATTENDING PHYSICIAN: Dr. Wendi Ramirez. CONSULTING PHYSICIAN: Dr. Kristian Robertson. REASON FOR CONSULT: Concerns over questionable depression and need for followup mental health treatment. SUBJECTIVE HISTORY: Psychiatry is seeing this 67-year-old white female with a history of chronic alcoholism, who is currently admitted on the fourth floor for an acute episode of altered mental status, who has subsequently been diagnosed with delirium. The patient was apparently found wandering on the road in her neighborhood after having what she described as a scary dream and was brought to the hospital. According to Dr. Ramirez, the patient denied recent alcohol use and her blood alcohol content was negative, however, her family subsequently found multiple bottles of empty wine in the house and her living space was messy and disorganized. The question has arisen as to whether she has clinical depression and perhaps requires mental health treatment. Apparently, she was seen over the weekend by Dr. Mike Mckeon and started on a trial of naltrexone for alcohol use disorder. Psychiatry interviewed both the patient and her son, Deep, for further information. When I entered her room, she was preparing for discharge. She is aware of the reasons for the consult and states that a similar episode happened to her in the past, although she can't recall the details. Currently, she reports only remembering "bits and pieces" of the situation leading to this admission. She does acknowledge having a nightmare, which "really upset me." She thought that someone was in her house and went outside feeling unsafe where she flagged down a neighbor who called 911. The patient has no memory of actually travelling to the hospital. Since admission, she acknowledges that she has been confused, although feeling slightly better from this everyday. I did screen her for both depression and anxiety, which she denies; however, she states "I have loneliness I guess." The patient becomes quite tearful when discussing this. She does indicate that her lifestyle is less active due to problems with pain in her feet. Although she claims to have a boyfriend and several friends in the community, she does acknowledge that her social activities have dropped off considerably. The patient raises the issue of senior assisted living and states that she is open to the idea of touring facilities locally to see if any would be a good fit for her. The patient denies any recent use of alcohol, but when confronted with the presence of multiple empty wine bottles in her home, she admits that she may have been using alcohol without remembering it. On examination, her orientation to time and place are actually quite good, although I see obvious deficits in her delayed recall and long-term memory that emerge throughout the interview. When I spoke with her son, Jonny, he does indicate that he and his siblings are concerned about this episode as well as the dishevelled status of her home. He is actively attempting to assist her in finding a more structured living environment. PSYCHIATRIC HISTORY: The patient states that she saw a therapist during her divorce, although she cannot recall when exactly this was. She also recalls being placed on a trial of Zoloft by her primary care provider at that time. She denies any history of suicidality. She denies any history of abuse or neglect growing up. She does believe that she had a concussion playing softball as a teenager, but later admits to me that this may1 have been one of her children that experienced this. SUBSTANCE ABUSE HISTORY: Significant for chronic alcoholism. The patient is vague on the details of her recent use, but she does have a history of DWI, although she cannot recall the year this occurred. She denies any past history of tobacco abuse. She states that she used to smoke occasional cannabis with friends, but not in several years. PAST MEDICAL HISTORY: Significant for hypertension, right hip replacement, thyroid disorder, asthma, gastroesophageal reflux disease. FAMILY PSYCHIATRIC HISTORY: Significant for 2 maternal uncles with chronic alcoholism. There is no history of suicide within the family. SOCIAL HISTORY: The patient was born in [place], but raised in [place] to an intact family. She was the third of 4 total children, with 2 older brothers, 1 younger brother. 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 She was in the , believes that she was some time in the . Currently, she is in a relationship with someone she identifies as her boyfriend for "years now." She does indicate that she is sexually active , but denies history of sexually transmitted diseases. She is neither catholic nor spiritual. She has no prior history of miliary service. The patient denies any legal problems other than the DWI in her past. MENTAL STATUS EXAMINATION: The patient is an aging white female who is dressed in an athletic sweatshirt and sweatpants. She appears to be clean, fairly well groomed. She makes good eye contact and it is fairly easy to establish a rapport with her. Her speech has a slow rate and somewhat low tone, but is otherwise fluent with a good vocabulary. Mood appears to be euthymic with a full affect except for when she is discussing feelings of loneliness, at which time, she becomes tearful. Thought process is linear, goal directed. Thought content is significant for her desire to be more socially active. She denies suicidal or homicidal ideations. She denies auditory or visual hallucinations. Insight and judgment appear to be fair given her statement that she will stop drinking and would like to get into an assisted living facility. Cognitively, she is awake and alert. She performs well on the Mini-Mental State Exam, being completely oriented to both time and place; however, she does have deficits in delayed recall and significant gaps in her memory. DIAGNOSES: Kellogg I: Alcohol use disorder, rule out dementia secondary to alcohol. Kellogg II: Deferred. ASSESSMENT: The patient is a 67-year-old white female with a history of chronic alcoholism, who is admitted to the fourth floor following an episode of confusion and altered mental status and she continues to receive treatment for delirium, although my understanding is that she is going to be discharged today. Her attending, Dr. Ramirez, was concerned that the patient may have an underlying mental health problem and would like her evaluated with any recommendations we might have for follow-on treatment. My sense at this time is that her main issues are related to substance abuse and resulting cognitive problems that are secondary to that. I do not see any evidence of a primary mental illness. PLAN/RECOMMENDATIONS: Psychiatry recommends senior assisted living for more structure and more support in the community. I do not think that she would benefit from rehab given her current cognitive level of functioning; however, this could change if she maintains sobriety long enough for her thinking to get clearer. Mostly, I think she would benefit from enhanced socialization, structure, and someone who could check in with her to make sure that she is not abusing alcohol. The patient is open to evaluating options for senior assisted living. At this time, Psychiatry is signing off the case; however, we can be reconsulted in the event of any changes in the patient's functioning or presentation. Thank you for the interesting consult. [id number]/[id number] #: [id number] ALEX
--- NOTE | 2018-02-20 21:53 | DS ---
DISCHARGE SUMMARY: DATE OF ADMISSION: 02/16/18 DATE OF DISCHARGE: 02/20/18 DISCHARGE DIAGNOSES: 1. Change in mental status. 2. Urinary tract infection. 3. Alcohol abuse. 4. Hypertension. 5. Nonsustained ventricular tachycardia. 6. Hypokalemia, treated. 7. Scoliosis. 8. History of impaired fasting glucose. 9. Allergic rhinitis. 10. Peripheral neuropathy. 11. History of breast cancer. 12. History of depression. 13. Michael's thyroiditis. 14. Hyperlipidemia. 15. Hypomagnesemia, treated. HISTORY: Yamilet Nash is a 67-year-old woman admitted after having been found wandering at the side of the road with confusion. Please see the dictated admission note for details of the present illness, past medical history, family history, social and personal history, review of systems, and physical examination. LABORATORY DATA: CBC on admission: WBC 11.4, H and H 14.4/43, MCV 93, PLT 195, 000. CBC prior to discharge on 02/20/18: WBC 6.6, H and H 12.5/38, MCV 95, PLT 167,000. INR 1.07. Chemistries on admission: Sodium 135, potassium 3.7, chloride 95, CO2 of 26, BUN and creatinine 24/1.13, glucose 96, calcium 10.4, magnesium 1.1, total bilirubin 2.2, CRP 11.29. Rest of her comprehensive metabolic panel was within normal limits. TSH normal at 2.24. Lipids: Triglycerides 104, cholesterol 257, LDL 167, HDL 69.6. Free T4 of 1.15, free T3 of 3.60, a 25-hydroxy vitamin D was normal at 50.7. Ammonia level normal at 42. Subsequent calcium came down to 9.4 on 02/17/18, was 10.4 on 02/20/18. CMP prior to discharge on 02/20/18 was normal except for potassium 5.2, creatinine 1.04, calcium 10.4. Urinalysis: Yellow cloudy. Specific gravity 1.015, pH 6. Dipstick is positive for protein 2+, ketones 1+, blood 1+, leukocyte esterase 3+, wbc's 3+, rbc's 2+, squamous epithelial cells present, urine bacteria 1+, hyaline casts present. Tox screen including salicylates, opiates, alcohol was all negative. Immunology: TPO antibody was normal at 0.34. Of note, previous labs had shown a normal PTH level and positive TPO antibodies in 2006. IMAGING: Brain CT on 02/16/18: No acute intracranial process. Moderate involutional change on the previous MRI. There was mild mucosal thickening at the left sphenoid sinus. Chest x-ray on 02/16/18 showed stigmata of probable chronic COPD; no evidence for pneumonia; moderate elevation of the right hemidiaphragm, new since 2006. Brain MRI on 02/16/18 showed involutional change , mild to moderate and mild small vessel changes. EKG on 02/16/18 showed sinus tachycardia with irregular rate. Transthoracic echocardiogram showed diastolic dysfunction, LVH, normal EF, aortic annular calcification, trace AI, mild MR. CONSULTATIONS: Neurology, Dr. Chu 02/16/18 noted acute confusion due to acute encephalopathy manifesting as delirium. He felt that it might relate to alcohol or fivu-cyx-rcudfok medications. He recommended further thyroid testing , MRI, EEG, neuro checks, IV fluids, treatment of hypertension, thiamine supplementation. Followup neurology consultation, Dr. Schmidt felt her encephalopathy was likely related to alcohol. He recommended continuing folic acid and thiamine. He saw no need for LP. He did feel that the UTI might be contributing. Followup consultation Dr. Schmidt, 02/18/18. Thought she was more oriented. EEG was consistent with encephalopathy. He thought she was improved, less delusional. Followup consultation Flaquito Wells NP for Neurology 02/19/18 thought she was still improving from a neurological standpoint. EEG report 02/16/18 Dr. Chu; abnormal awake EEG due to the presence of mild diffuse slowing, suggestion of mild global encephalopathy. No seizure. HOSPITAL COURSE: The patient was initially admitted, placed on telemetry. Her cabq-cyc-fymapxz medications were held. She was placed on the [facility] protocol. She was continued on her usual irbesartan. She was treated with ceftriaxone for her urinary tract infection which grew out E. Coli sensitive to all antibiotics tested. Blood cultures were negative. She was monitored on telemetry. She did have, while her magnesium and potassium were low, nonsustained V-tach. This seemed to go away once her electrolytes were repleted. As noted, she had repletion of her magnesium and potassium. Her sensorium improved. Her blood pressure remained high and then gradually came down. Discussions were held with her family, both her daughter Shawna and her son Jonny who came on the day of discharge. She did not really remember the 2 weeks prior to admission after she returned from visiting her brothers in [place]. She could not say whether she had been depressed or not. Her son did confirm that there were bottles of wine at her home when he looked through the window prior to coming to the hospital today, so it seems that she was drinking in the last couple of weeks. She is living in a large house and is hoping to move to an apartment at [place]. She has a friend that is living there. We discussed the question about an alcohol rehab program. She said she did not want to do this. She was amendable to counseling in my office. 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 Her son said he would drive with her to determine that. We discussed the question of depression. She was willing to see a psychiatrist prior to being discharged today. She was seen by physical and occupational therapy. They both felt that she was safe to go home. She was started on naltrexone while in the hospital. At the time of discharge, she is alert, oriented. MEDICATIONS: 1. Naltrexone 50 mg daily. A prescription for this was sent into [facility]. 2. MultiVites 1 daily. 3. Mometasone nasal spray 1 to 2 sprays both nostrils daily. 4. Melatonin 3 mg at bedtime as needed for sleep. 5. Loratadine 10 mg daily as needed for allergies. 6. Vitamin D 1000 units daily. 7. Probiotic 1 daily. 8. Irbesartan 300 mg daily. 9. ProAir 2 puffs every 4 hours as needed for asthma. DIET: Regular. No alcohol. ACTIVITY: As tolerated. Followup with me should be in 1 to 3 days and she will also see our behavioral health practice consultant in the office. [id number]/[facility] #: [id number] ALEX
== END 2018-02-20 13:45 | disposition home or self-care (01) | DRG 92 ==
LOC: ED 12:03 → MEDTELE 17:42
PROVIDERS: ADMIT Nurse Practitioner; ATTEND Internal Medicine Geriatric Medicine
DX: G92 Toxic encephalopathy (principal); N39.0 Urinary tract infection, site not specified; I47.2 Ventricular tachycardia; F10.27 Alcohol dependence with alcohol-induced persisting dementia; B96.20 Unspecified Escherichia coli [E. coli] as the cause of diseases classified elsewhere; Y90.0 Blood alcohol level of less than 20 mg/100 ml; I12.9 Hypertensive chronic kidney disease with stage 1 through stage 4 chronic kidney disease, or unspecified chronic kidney disease; N18.3 Chronic kidney disease, stage 3 (moderate); E87.6 Hypokalemia; M41.9 Scoliosis, unspecified; R73.01 Impaired fasting glucose; G62.9 Polyneuropathy, unspecified; E06.3 Autoimmune thyroiditis; E78.5 Hyperlipidemia, unspecified; E83.42 Hypomagnesemia; Z96.641 Presence of right artificial hip joint; J45.909 Unspecified asthma, uncomplicated; K21.9 Gastro-esophageal reflux disease without esophagitis; Z85.3 Personal history of malignant neoplasm of breast; Z79.899 Other long term (current) drug therapy; Z88.8 Allergy status to other drugs, medicaments and biological substances; Z82.3 Family history of stroke; Z82.49 Family history of ischemic heart disease and other diseases of the circulatory system; Z81.1 Family history of alcohol abuse and dependence
CPT/HCPCS: 36415; 70450; 70553; 71046; 80048; 80053; 80061; 80076; 80307; 80320; 80329; 81003; 81015; 82140; 82306; 82607; 82977; 83605; 83735; 84100; 84439; 84443; 84481; 84484; 85025; 85610; 86140; 86376; 87040; 87077; 87086; 87186; 93005; 93306; 95816; 99284; A9270-GY; A9579; G0480; G8978-GP-CH; G8979-GP-CH; G8980-GP-CH; G8987-GO-CI; G8988-GO-CI; G8989-GO-CI; J0696; J1644; J2060; J3411; J3475

== ENCOUNTER 2018-07-25 08:22 | Day surgery (SDC) | payer MEDICARE ==
[~2018-07-25 08:22] MED LIST: Acetaminophen TAB* 325 MG PO PRN; Buffered Lidocaine 1% SYRIN* 1 ML/SYRINGE INTRADERM ONE; Cyclopentolate 1% OPTH.SOL* 2 ML BTL ONE; Ketorolac 0.5% OPHTH (NF) 0.5 % 5 ML BTL ONE; Lidocaine 1%** 5 ML VIAL ONE; Lidocaine 2% EPI 1:200000 MPF*10-20 ML VIAL ONE; Neomycin/Polymy/Dex OPTH.SUSP* MAXITROL 0.1% 5 ML ONE; Phenylephrine OPHTH SOL 2.5%* 2 ML ONE; Povidone Iodine 5% OPTH* 30 ML BTL ONE; Proparacaine 0.5% OPHTH.SOL* 15 ML BTL ONE; acetaZOLAMIDE TAB* 250 MG ONE
[2018-07-25 08:56] VITALS: BP 135/81
[2018-07-25] MEDS ORDERED: Midazolam* 1 MG/ML 2 ML VIAL (2 MG) ONE (10:17)
--- NOTE | 2018-07-25 11:35 | OP ---
OPERATIVE NOTE: DATE OF OPERATION: 07/25/18 - [facility] DATE OF : 54 SURGEON: Moe Contreras M.D. PREOPERATIVE DIAGNOSIS: Cataract, left eye. POSTOPERATIVE DIAGNOSIS: Cataract, left eye. OPERATIVE PROCEDURE: Extracapsular cataract extraction with IOL, left eye. PROCEDURE: The patient was brought to the operating room after being given 1/2 % Alcaine with epinephrine drops in the preoperative area. The eye was prepped and draped in the usual sterile fashion. Sterile drape and eyelid speculum were placed. Again, topical 1/2% Alcaine with epinephrine was given. A paracentesis incision was made at the 3 o'clock position with the No.75 blade. Clear cornea incision 2.2 x 2.2-mm was created at the 6 o'clock position starting at the anterior limbus using the 2.2-mm keratome. The anterior chamber was irrigated with 0.4 mL of 1% non-preservative intracameral lidocaine and filled with DisCoVisc. A capsulorrhexis was completed using the cystotome and the Utrata forceps. Hydrodissection was performed with balanced salt solution. The lens nucleus was removed with the Phacoemulsification handpiece without incident. Cortex was removed with the irrigation-aspiration handpiece. The capsular bag was re-inflated using DisCoVisc and an [id number] implant was inserted with the shooter. The irrigation-aspiration handpiece was used to remove all residual DisCoVisc. The eye was refilled with balanced salt solution and the wound checked and found to be watertight. Topical Maxitrol drops were given. [id number]/[facility] #: [id number] [facility] CENTERSameer
== END 2018-07-25 11:30 | disposition home or self-care (01) ==
LOC: OREAST 08:22
PROVIDERS: ATTEND Specialist
DX: H25.812 Combined forms of age-related cataract, left eye (principal); H40.023 Open angle with borderline findings, high risk, bilateral; D31.42 Benign neoplasm of left ciliary body; I10 Essential (primary) hypertension; J45.909 Unspecified asthma, uncomplicated; K21.9 Gastro-esophageal reflux disease without esophagitis; M19.90 Unspecified osteoarthritis, unspecified site
CPT/HCPCS: A9270-GY; J2250; V2632

== ENCOUNTER → 2018-12-06 | Day surgery (SDC) | payer MEDICARE ==
--- NOTE | 2018-12-03 00:48 | HP ---
CC: Dr. Connelly.* HISTORY AND PHYSICAL: DATE OF ADMISSION: Surgery is planned for 12/06/18. CHIEF COMPLAINT: Yamilet Nash is a 68-year-old woman scheduled for surgery on her right foot. The patient has osteoarthritis of the right foot. PAST MEDICAL HISTORY: Significant for the following medical problems: 1. Hypertension. 2. Osteoarthritis. 3. Alcoholism, in remission. 4. Breast cancer, in remission. 5. History of asthma. 6. History of gastroesophageal reflux disease. 7. History of impaired fasting glucose. 8. Allergic rhinitis. 9. Peripheral neuropathy. 10. History of depression. 11. Michael's thyroiditis. 12. Hyperlipidemia. PAST SURGICAL HISTORY: Include: 1. Right hip replacement. 2. D and C for endometrial polyp. 3. Ulnar nerve release on the right. 4. Right fifth digit bone spur removed and status post right first metatarsophalangeal joint removal of hardware. 5. 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 6. Screw removed from the elbow after elbow surgery, March 1991. MEDICATIONS: 1. Avapro 300 mg daily CRISTOPHER. 2. ProAir 2 puffs every 4 hours as needed. 3. Nasonex 50 mcg 1 to 2 sprays nasally every day. 4. Calcium twice a day 250/200 two tablets every day. 5. Acetaminophen 500 mg 2 tablets orally 3 times a day. 6. MultiVites 1 every day. 7. Melatonin 3 mg one half tablet at bedtime as needed for sleep. 8. Probiotics 1 capsule every day. 9. Claritin 1 tablet everyday as needed for allergies. ALLERGIES: IRBESARTAN (generic, able to take brand name Avapro), IBUPROFEN causes wheezing, ANASTROZOLE cause diarrhea, nausea, vomiting, upset stomach, loss of appetite, CITALOPRAM causes disorientation, AUGMENTIN causes diarrhea, CARDURA causes dyspnea, VASOTEC causes cough, LOPRESSOR causes fatigue, CALAN causes dyspnea, PROTONIX tongue swelling, and COZAAR causes sluggishness. FAMILY HISTORY: Positive coronary artery disease, abdominal aortic aneurysm, hypertension, stroke, colon cancer. SOCIAL HISTORY: Habits: Tobacco none. ETOH, still drinking 2 to 3 glasses of wine per week. The patient is . 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 She lives in her own home. She is living most of the time with a boyfriend. She has adult children who live out of the area. REVIEW OF SYSTEMS: Generally, she has been feeling well. Appetite is good. Weight is stable. Skin: Negative. HEENT: Negative. She has had a recent cataract surgery. Nose: Negative. Heme: Negative. Endocrine: See above. Breasts: See above. Respiratory: See above. Cardiovascular: No chest pain, palpitations, leg pain with exertion, swollen ankle, varicose veins. GI: Negative. : History of previous urinary tract infection, which led her to have a hospitalization in February. No current symptoms. Musculoskeletal: See above. She has pain in her hands, feet. Diclofenac gel helps. Neurologic: She had metabolic encephalopathy at the time of her admission for urinary tract infection. She has no current symptoms. Psychiatric: See above. Currently not depressed. PHYSICAL EXAMINATION GENERAL: She is an elderly white female appearing mildly dyspneic and weak in no acute distress. VITAL SIGNS: Blood pressure 134/82, pulse 97, temperature 98.4, weight 133 pounds, BMI 20.437. She is a thin female, in no acute distress. HEENT: Atraumatic, normocephalic. Full EOMs. Mouth: Pharynx unremarkable. NECK: Supple. CHEST: Clear. HEART: Normal S1, S2. No murmurs, gallops or rubs. ABDOMEN: Soft and nontender, no masses or organomegaly. Bowel sounds are active. EXTREMITIES: Showed no clubbing, cyanosis or edema. Foot exam per Dr. Connelly. MUSCULOSKELETAL: Shows osteoarthritic changes of the hands. NEUROLOGIC: Without gross focal or lateralizing signs. DTRs 2+, knee, ankle jerks SKIN: Warm and dry. IMPRESSION AND PLAN: A 68-year-old woman with problems as noted above. There are no contraindication to foot surgery at this time. Her blood pressure is controlled. She has no cardiopulmonary symptoms at this time. She has a revised cardiac risk index +1 low. She denies any prior adverse reactions to anesthesia. Please contact us during the perioperative period should any questions or problems arise. Should the patient need any followup in the hospital, please contact me. [id number]/[facility] #: [id number] ALEX
[~2018-12-06] MED LIST changes: +Acetaminophen TAB* 325 MG ONE; +Acetaminophen TAB* 325 MG PO ONE; -Acetaminophen TAB* 325 MG PO PRN; +Bupivacaine 0.5%* 50 ML MDV VIAL ONE; -Cyclopentolate 1% OPTH.SOL* 2 ML BTL ONE; +Dexamethasone IV* 4 MG/ML 1 ML (4 MG) ONE; +EPHEDrine (Pressors)* 50 MG/ML VIAL ONE; +HYDROmorphone INJ1* 1 MG/ML SYRINGE ONE; -Ketorolac 0.5% OPHTH (NF) 0.5 % 5 ML BTL ONE; +Lactated Ringers 1000 ML Bag* 1,000 ML IV SCH; -Lidocaine 1%** 5 ML VIAL ONE; -Lidocaine 2% EPI 1:200000 MPF*10-20 ML VIAL ONE; +Lidocaine 2% PF* 10 ML AMP ONE; +Midazolam* 1 MG/ML 2 ML VIAL (2 MG) ONE; +Naloxone* 0.4 MG/ML 1 ML VIAL IV PRN; -Neomycin/Polymy/Dex OPTH.SUSP* MAXITROL 0.1% 5 ML ONE; +Ondansetron INJ* 2 MG/ML VIAL IV PRN; +Ondansetron INJ* 2 MG/ML VIAL ONE; +PROCHLORPERAZINE INJ 5 MG/ML 2 ML VIAL IV PRN; -Phenylephrine OPHTH SOL 2.5%* 2 ML ONE; -Povidone Iodine 5% OPTH* 30 ML BTL ONE; -Proparacaine 0.5% OPHTH.SOL* 15 ML BTL ONE; +Propofol* 10 MG/ML 20 ML BTL ONE; -acetaZOLAMIDE TAB* 250 MG ONE; +ceFAZolin 2 GM in NS PREMIX(*) 2 GM/100 ML BAG IVPB ONE; +diPHENhydraMINE IV* 50 MG/ML 1 ml VIAL (BENADRYL) IV PRN; +fentaNYL* 50 MCG/ML 2 ML VIAL (100 MCG VIAL) ONE; +oxyCODONE TAB* 5 MG TAB ONE; +oxyCODONE TAB* 5 MG TAB PO PRN
[2018-12-06] MEDS: HYDROmorphone INJ1* 1 MG/ML SYRINGE IV PRN ×3 (10:10→10:28)
--- NOTE | 2018-12-06 10:34 | OP ---
Operative Report - Blank - Operative Report Date of Operation: 12/06/18 Note: PATIENT: Yamilet Nash DATE OF : 1950 DATE OF SURGERY: 12/06/2018 SURGEON: Rosendo Connelly MD HOME DAY CARE PROVIDER: RDAHA Jones, whos assistance was necessary for positioning, retraction, help with instrumentation, and closure. ANESTHESIOLOGIST: Dr. Lee PREOPERATIVE DIAGNOSIS: Right foot hallux rigidus and hallux varus. Right 2nd MTP synovitis, instability and angular deformity. Right gastrocnemius contracture. POSTOPERATIVE DIAGNOSIS: Right foot hallux rigidus and hallux varus. Right 2nd MTP synovitis, instability and angular deformity. Right gastrocnemius contracture. OPERATION: 1. Right first metatarsophalangeal joint arthrodesis 2. Right 2nd metatarsal shortening osteotomy and angular correction of the 2nd MTP joint. 3. Right gastrocnemius recession (Noelle procedure) ANESTHESIA: General IMPLANTS: Two Arthrex 4.0mm cannulated screws One Arthrex quickfix screw in 2nd MT. TOURNIQUET TIME: Less than 2 hours with a well-padded thigh tourniquet at 250 mmHg. SPECIMENS: None ESTIMATED BLOOD LOSS: Minimal COMPLICATIONS: none STATUS: Stable from the operating room to the recovery room and then home. INDICATIONS FOR PROCEDURE: Yamilet has had recalcitrant right forefoot pain centered at the first and second MTP joints. We have tried extensive nonoperative treatment. She has had prior surgery on the first metatarsal, with osteotomy. She also has forefoot overload with gastrocnemius equinus. Both operative and non-operative treatment alternatives were reviewed. Further, the nature and risks of surgery were reviewed in careful detail, in the office as well as the pre-operative holding area. Our discussions regarding the risks of surgery included, but were not limited to, infection, wound problems, nerve injury, neuroma, RSD, persistent symptoms, blood clot, nonunion, malunion, fracture, AVN, need for further surgery, failure of the surgery, and even the remote chance of catastrophic complication. DESCRIPTION OF PROCEDURE: The patient was seen in the preoperative holding unit and informed written consent was obtained. The appropriate extremity was marked. The patient was then brought to the operating room and carefully positioned on the operating room table. Anesthesia was induced. All bony prominences were padded with great care. A chlorhexidine based pre-scrub was performed followed by a chloraprep prep and drape in standard sterile fashion. A surgical safety pause was then conducted in which we confirmed the appropriate patient, extremity, planned procedure, availability of equipment, indication and administration of prophylactic antibiotics, and DVT prophylaxis in the form of a compression boot on the non-surgical extremity. I began with an Esmarch exsanguination of the limb and inflated the tourniquet. I then made an approximately 3-cm incision at the posteromedial calf. I carried the dissection through the soft tissue and divided the crural fascia longitudinally. I then exposed the fascia of the gastrocnemius muscle. Great care was taken to protect the sural nerve throughout this procedure. I cleared all adhesions from the posterior aspect of the gastrocnemius fascia and then transected this in its entirety from medially to laterally. I then identified the plantaris tendon, which was also tight medially. This was transected. These procedures had the effect of improving the ankle dorsiflexion to approximately 10 degrees. I then again confirmed that the sural nerve was in continuity. We irrigated copiously. We then used #3-0 Monocryl for the subdermal layer and pushpa for the skin. I then utilized her prior longitudinal incision dorsally overlying the first MTP joint. I carried the dissection down through the soft tissue. She had very thin skin. I then came sharply down to the level of the first MTP joint. I released around the medial aspects and lateral aspects of the joint to expose the metatarsal head and the base of the proximal phalanx. We had good visualization. There were bone on bone arthritic changes present throughout the entirety of the joint. I prepared the joint for arthrodesis utilizing a cup and cone reamers, a rongeur around the edges, and a 0.045 K wire to perforate the ends of the bone. There was healthy cancellous bone on both sides of the joint. I brought the hallux back into valgus, and physiologic dorsiflexion, and used a flat plate to confirm this. I then placed the hardware, consisting of two 4.0 mm cannulated screws, which held the toe well aligned. I then packed demineralized bone matrix into the areas of the fusion site without bony apposition. A longitudinal incision was then made between the second and third metatarsals in the webspace. Dissection was carried down to expose the dorsal joint capsule of the second MTP joint. The joint capsule was incised longitudinally to expose the second metatarsal head. I then used an oscillating saw to perform an oblique metatarsal shortening osteotomy of the second metatarsal ( Annamarie osteotomy). I then used a 2.0 mm, length, 14 mm, twist-off screw to secure the osteotomy. This had excellent purchase. I then tightened the lateral MTP joint capsule to realign the toe and MTP joint. This held the second metatarsal phalangeal joint and second toe in good position. Final fluoroscopic images were obtained. The wounds were copiously irrigated and meticulously closed in layers utilizing 3-0 Monocryl and 3-0 nylon. A sterile dressing was then applied, followed by a splint with the ankle at neutral. The patient was then awakened from anesthesia and transferred to the recovery room in stable condition. There were no complications. All needle and sponge counts were correct at the end of the case. ATTESTATION: I attest I was present and scrubbed and performed the critical portions of the procedure myself. POSTOPERATIVE PLAN: The patient will remain heel weightbearing for anticipated duration of 8 weeks. Followup will be in 2 weeks for likely suture removal and Steri-Strip application, and transition to a short-leg cast.
[2018-12-06 11:29] VITALS: BP 141/93
== END | disposition home or self-care (01) ==
LOC: OR 05:50
PROVIDERS: ATTEND Orthopaedic Surgery
DX: M20.21 Hallux rigidus, right foot (principal); M20.31 Hallux varus (acquired), right foot; M20.5X1 Other deformities of toe(s) (acquired), right foot; M62.471 Contracture of muscle, right ankle and foot; M19.071 Primary osteoarthritis, right ankle and foot; I10 Essential (primary) hypertension; J45.909 Unspecified asthma, uncomplicated; K21.9 Gastro-esophageal reflux disease without esophagitis; M19.90 Unspecified osteoarthritis, unspecified site; Z85.3 Personal history of malignant neoplasm of breast
CPT/HCPCS: 76000; A9270-GY; C1713; J0690; J1100; J1170; J2001; J2250; J2405; J2704; J3010; J3490